=== PATIENT | male | born 1965 | race Caucasian/White ===

== ENCOUNTER 2021-09-27 21:43 | Inpatient (IN) | payer SELFPAY ==
[2021-09-28 01:29] VITALS: BMI 31.9
[2021-09-28] MEDS ORDERED: Ondansetron PF 4 MG/2 ML Vial IVP PRN (02:48)
[2021-09-28] MEDS ORDERED: Ondansetron ODT 4 MG TAB PO PRN (02:48)
[2021-09-28] MEDS ORDERED: Guaifenesin DM 100-10/5 ML UDCUP PO PRN (02:48)
[2021-09-28] MEDS ORDERED: Acetaminophen 325 MG TAB PO PRN (02:48)
[2021-09-28] MEDS ORDERED: Calcium Carbonate 500 MG ChewTAB PO PRN (02:48)
[2021-09-28] MEDS ORDERED: Dextrose 50% Abboject 50 ML SYRINGE SLOW IVP PRN (02:48)
[2021-09-28] MEDS ORDERED: Acetaminophen 650 MG Suppository PR PRN (02:48)
[2021-09-28] MEDS ORDERED: Dextrose 5% in Water 1,000 ML IV PRN (02:48)
[2021-09-28] MEDS ORDERED: Albuterol 200 PUFF (6.7GM INHALER) INH PRN (02:58)
[2021-09-28] MEDS ORDERED: REMDESIVIR 200 MG in Sodium Chloride 0.9% 250 ML 210 ML IV SCH (03:15)
[2021-09-28] MEDS: Mometasone 100 MCG/Formoterol 5 MCG 120 PUFF INHALER INH SCH ×2 (07:04→18:05)
[2021-09-28] MEDS: HumaLOG 300 UNITS/3 ML VIAL SC PRN ×4 (07:05→21:19)
[2021-09-28] MEDS ORDERED: HumuLIN 70/30 (300 UNITS/3 ML VIAL) SC SCH ×2 (07:30→09:00)
[2021-09-28 07:32] LABS: #Lymphocytes 0.5 thou/uL (1.20-3.40); #Monocytes 0.1 thou/uL (0.11-0.59); #Neutrophils 5.2 thou/uL (1.40-6.50); %Lymphocytes 8.7 % (21.0-51.0); %Monocytes 2.1 % (0.0-10.0); %Neutrophils 89.2 % (42.0-75.0); Hemoglobin 13.1 g/dL (14.0-18.0); Mean Corpuscular HGB CONC 33.4 g/dL (32.0-36.0); Mean Corpuscular Hemoglobin 30.7 pg (27.0-31.0); Mean Corpuscular Volume 91.9 fL (78.0-98.0); Mean Platelet Volume 9.1 fL (7.4-10.4); Platelet Count 71 thou/uL (130-400); RBC Distribution Width 12.1 % (11.5-14.5); Red Blood Cell (RBC) Count 4.28 mill/uL (4.70-6.10); White Blood Cell (WBC) Count 5.8 thou/uL (4.8-10.8)
[2021-09-28 07:41] LABS: ALT (SGPT) 19 U/L (8-55); AST (SGOT) 23 U/L (5-34); Albumin 3.5 g/dL (3.5-5.0); Alkaline Phosphatase 71 U/L (40-110); Anion Gap 16 mmol/L (10-20); BUN (Urea Nitrogen) 21 mg/dL (8.4-25.7); Bilirubin, Total 0.9 mg/dL (0.2-1.2); CRP (Inflammatory) 9.98 mg/dL (= or < 0.5); Calc. Creatinine Clearance 140 mL/min (70-130); Calcium 8.5 mg/dL (7.8-10.44); Carbon Dioxide 23 mmol/L (22-29); Chloride 104 mmol/L (98-107); Globulin 3.7 g/dL (2.4-3.5); Glucose 311 mg/dL (70-105); Potassium 4.8 mmol/L (3.5-5.1); Protein, Total 7.2 g/dL (6.0-8.3); Sodium 138 mmol/L (136-145)
[2021-09-28] MEDS ORDERED: FLU VACC QS2021-22(6MOS UP)/PF 60 MCG/0.5 ML SYRINGE IM ONE (09:00)
[2021-09-28] MEDS: Enoxaparin Sodium 40 MG/0.4 ML SYRINGE SC SCH (09:26)
[2021-09-28] MEDS: Carvedilol 6.25 MG TAB PO SCH ×2 (09:27→16:08)
[2021-09-28] MEDS: Atorvastatin Calcium 40 MG TAB PO SCH (09:27)
[2021-09-28] MEDS: NIFEdipine XL 30 MG TAB PO SCH ×2 (09:27→21:15)
[2021-09-28] MEDS: Dexamethasone 4 MG TAB PO SCH (09:28)
[2021-09-28] MEDS: Losartan 25 MG TAB PO SCH ×2 (09:28→21:16)
[2021-09-28] MEDS ORDERED: guaiFENesin ER 600 MG TAB PO SCH (10:15)
[2021-09-28] MEDS: guaiFENesin ER 600 MG TAB PO SCH (21:16)
[2021-09-28] MEDS: HumuLIN 70/30 (300 UNITS/3 ML VIAL) SC SCH (21:18)
[2021-09-29] MEDS ORDERED: REMDESIVIR 100 MG in Sodium Chloride 0.9% 250 ML 230 ML IV SCH (03:15)
[2021-09-29] MEDS: Mometasone 100 MCG/Formoterol 5 MCG 120 PUFF INHALER INH SCH ×2 (06:00→17:39)
[2021-09-29] MEDS: HumaLOG 300 UNITS/3 ML VIAL SC PRN ×4 (06:01→20:56)
[2021-09-29 08:02] LABS: #Lymphocytes 0.8 thou/uL (1.20-3.40); #Monocytes 0.4 thou/uL (0.11-0.59); #Neutrophils 3.5 thou/uL (1.40-6.50); %Basophils 0.2 % (0.0-1.0); %Eosinophils 0.1 % (0.0-10.0); %Lymphocytes 17.1 % (21.0-51.0); %Monocytes 7.6 % (0.0-10.0); Hemoglobin 12.7 g/dL (14.0-18.0); Mean Corpuscular HGB CONC 32.6 g/dL (32.0-36.0); Mean Corpuscular Hemoglobin 29.9 pg (27.0-31.0); Mean Corpuscular Volume 91.9 fL (78.0-98.0); Mean Platelet Volume 8.3 fL (7.4-10.4); Platelet Count 81 thou/uL (130-400); RBC Distribution Width 11.9 % (11.5-14.5); Red Blood Cell (RBC) Count 4.23 mill/uL (4.70-6.10); White Blood Cell (WBC) Count 4.7 thou/uL (4.8-10.8)
[2021-09-29] MEDS: guaiFENesin ER 600 MG TAB PO SCH ×2 (08:05→20:49)
[2021-09-29] MEDS: Enoxaparin Sodium 40 MG/0.4 ML SYRINGE SC SCH (08:05)
[2021-09-29] MEDS: Dexamethasone 4 MG TAB PO SCH (08:05)
[2021-09-29] MEDS: Atorvastatin Calcium 40 MG TAB PO SCH (08:06)
[2021-09-29] MEDS: HumuLIN 70/30 (300 UNITS/3 ML VIAL) SC SCH ×2 (08:07→20:50)
[2021-09-29] MEDS: Losartan 25 MG TAB PO SCH ×2 (08:13→20:49)
[2021-09-29] MEDS: NIFEdipine XL 30 MG TAB PO SCH ×2 (08:13→20:48)
[2021-09-29] MEDS: Carvedilol 6.25 MG TAB PO SCH ×2 (08:13→19:29)
[2021-09-29 08:15] LABS: ALT (SGPT) 20 U/L (8-55); AST (SGOT) 20 U/L (5-34); Albumin 3.3 g/dL (3.5-5.0); Alkaline Phosphatase 69 U/L (40-110); Anion Gap 11 mmol/L (10-20); BUN (Urea Nitrogen) 19 mg/dL (8.4-25.7); Bilirubin, Total 0.9 mg/dL (0.2-1.2); Calc. Creatinine Clearance 147 mL/min (70-130); Calcium 8.5 mg/dL (7.8-10.44); Carbon Dioxide 28 mmol/L (22-29); Chloride 104 mmol/L (98-107); Globulin 3.6 g/dL (2.4-3.5); Glucose 196 mg/dL (70-105); Potassium 4.1 mmol/L (3.5-5.1); Protein, Total 6.9 g/dL (6.0-8.3); Sodium 139 mmol/L (136-145)
[2021-09-30] MEDS: Mometasone 100 MCG/Formoterol 5 MCG 120 PUFF INHALER INH SCH ×2 (06:03→18:30)
[2021-09-30] MEDS: HumaLOG 300 UNITS/3 ML VIAL SC PRN ×3 (06:57→17:42)
[2021-09-30 08:14] LABS: #Basophils 0.2 thou/uL (0.0-0.2); #Monocytes 0.5 thou/uL (0.11-0.59); #Neutrophils 5.4 thou/uL (1.40-6.50); %Basophils 2.2 % (0.0-1.0); %Eosinophils 0.3 % (0.0-10.0); %Lymphocytes 14.6 % (21.0-51.0); %Monocytes 6.8 % (0.0-10.0); Hemoglobin 13.2 g/dL (14.0-18.0); Mean Corpuscular HGB CONC 34.5 g/dL (32.0-36.0); Mean Corpuscular Hemoglobin 31.1 pg (27.0-31.0); Mean Corpuscular Volume 90.3 fL (78.0-98.0); Mean Platelet Volume 8.3 fL (7.4-10.4); Platelet Count 90 thou/uL (130-400); RBC Distribution Width 11.9 % (11.5-14.5); Red Blood Cell (RBC) Count 4.23 mill/uL (4.70-6.10); White Blood Cell (WBC) Count 7.1 thou/uL (4.8-10.8)
[2021-09-30 08:25] LABS: ALT (SGPT) 19 U/L (8-55); AST (SGOT) 17 U/L (5-34); Albumin 3.2 g/dL (3.5-5.0); Alkaline Phosphatase 69 U/L (40-110); Anion Gap 11 mmol/L (10-20); BUN (Urea Nitrogen) 16 mg/dL (8.4-25.7); Bilirubin, Total 0.8 mg/dL (0.2-1.2); Calc. Creatinine Clearance 156 mL/min (70-130); Calcium 8.3 mg/dL (7.8-10.44); Carbon Dioxide 28 mmol/L (22-29); Chloride 104 mmol/L (98-107); Globulin 3.4 g/dL (2.4-3.5); Glucose 170 mg/dL (70-105); Potassium 3.5 mmol/L (3.5-5.1); Protein, Total 6.6 g/dL (6.0-8.3); Sodium 139 mmol/L (136-145)
[2021-09-30] MEDS: Atorvastatin Calcium 40 MG TAB PO SCH (08:35)
[2021-09-30] MEDS: Dexamethasone 4 MG TAB PO SCH (08:35)
[2021-09-30] MEDS: Enoxaparin Sodium 40 MG/0.4 ML SYRINGE SC SCH (08:36)
[2021-09-30] MEDS: guaiFENesin ER 600 MG TAB PO SCH (08:36)
[2021-09-30] MEDS: HumuLIN 70/30 (300 UNITS/3 ML VIAL) SC SCH (08:37)
[2021-09-30] MEDS: Losartan 25 MG TAB PO SCH (11:47)
[2021-09-30] MEDS: Carvedilol 6.25 MG TAB PO SCH ×2 (11:47→16:00)
[2021-09-30] MEDS: NIFEdipine XL 30 MG TAB PO SCH (13:08)
[2021-09-30 14:25] VITALS: BP 175/91; TEMP 98.8
== END 2021-09-30 18:54 | disposition home or self-care (01) | DRG 177 ==
LOC: T4-B 21:43 → OBSVTOIN 21:43
PROVIDERS: ADMIT Student in an Organized Health Care Education/Training Program; ATTEND Student in an Organized Health Care Education/Training Program
PROC: 8E0ZXY6 Isolation (ICD-10-PCS; principal; 2021-09-27)
PROC: XW033E5 Introduction of Remdesivir Anti-infective into Peripheral Vein, Percutaneous Approach, New Technology Group 5 (ICD-10-PCS; 2021-09-27)
DX: U07.1 COVID-19 (principal); J12.82 Pneumonia due to coronavirus disease 2019; J96.01 Acute respiratory failure with hypoxia; Z23 Encounter for immunization; I10 Essential (primary) hypertension; E78.5 Hyperlipidemia, unspecified; D69.6 Thrombocytopenia, unspecified; E11.9 Type 2 diabetes mellitus without complications; E66.9 Obesity, unspecified; K76.0 Fatty (change of) liver, not elsewhere classified; Z79.4 Long term (current) use of insulin; Z88.8 Allergy status to other drugs, medicaments and biological substances; Z79.899 Other long term (current) drug therapy; Z68.32 Body mass index [BMI] 32.0-32.9, adult
CPT/HCPCS: 36415; 36416; 80053; 84145; 85025; 86140; 90471; 90686; G0008; J1650; J1815; J8540